=== PATIENT | female | born 1995 | race Caucasian/White ===

== ENCOUNTER 2017-12-08 13:55 | Emergency (ER) | payer OTHER ==
[2017-12-08] MEDS ORDERED: SODIUM CHLORIDE 0.9% 1,000 ML IV ONE (15:06)
--- NOTE | 2017-12-08 15:10 | ED ---
General Adult HPI - General Chief complaint: Vaginal Bleeding Stated complaint: 8 wks preg/bleeding & lightheaded Time Seen by Provider: 12/08/17 15:01 Source: patient, RN notes reviewed Mode of arrival: wheelchair Limitations: no limitations - History of Present Illness Initial comments: Patient is a pleasant 22-year-old female presenting to the emergency department with vaginal bleeding and cramping. Onset was a couple of hours ago. Patient estimates she may be 6-8 weeks . Last menstrual cycle was beginning of September but only lasted 2 days. Patient states she has been having irregular periods recently. Patient does have a history of cervical and ovarian cancer status post chemotherapy. Patient did not think it is possible . Patient is having bleeding that started as spotting however now is somewhat more than that but still later than a regular menstrual cycle. Patient also has cramping that is more severe than a regular menstrual cycle. Discomfort is presenting to the lower abdomen and back. Patient just found out she was a few days ago. Patient is 1 para 0. - Related Data Home Medications Medication Instructions Recorded Confirmed Albuterol Sulfate [Proair Hfa] 1 - 2 puff INHALATION RT-Q6H PRN 12/08/17 Allergies Allergy/AdvReac Type Severity Reaction Status Date / Time No Known Allergies Allergy Verified 12/08/17 15:49 Review of Systems ROS Statement: Those systems with pertinent positive or pertinent negative responses have been documented in the HPI. ROS Other: All systems not noted in ROS Statement are negative. Constitutional: Denies: fever Eyes: Denies: eye pain ENT: Denies: ear pain Respiratory: Denies: cough Cardiovascular: Denies: chest pain Endocrine: Denies: fatigue Gastrointestinal: Reports: abdominal pain Genitourinary: Reports: abnormal menses. Denies: dysuria Musculoskeletal: Reports: back pain Skin: Denies: rash Neurological: Denies: weakness Past Medical History Past Medical History: Asthma History of Any Multi-Drug Resistant Organisms: None Reported Past Surgical History: Appendectomy, Orthopedic Surgery Past Psychological History: ADD/ADHD, Anxiety, Depression, Schizophrenia Smoking Status: Current every day smoker Past Alcohol Use History: Daily Past Drug Use History: Marijuana General Exam Limitations: no limitations General appearance: alert Head exam: Present: atraumatic Eye exam: Present: normal appearance, PERRL ENT exam: Present: normal oropharynx Neck exam: Present: normal inspection Respiratory exam: Present: normal lung sounds bilaterally Cardiovascular Exam: Present: regular rate, normal rhythm GI/Abdominal exam: Present: soft, tenderness (Mild suprapubic tenderness). Absent: distended External exam: Present: normal external exam (RN Hui present) Speculum exam: Present: vaginal bleeding (Mild) By manual exam: Present: other (Mild diffuse tenderness on exam, somewhat more left adnexal) Extremities exam: Present: normal inspection Back exam: Present: tenderness (Mild discomfort lower back) Neurological exam: Present: alert Psychiatric exam: Present: normal affect, normal mood Skin exam: Present: normal color Course Vital Signs 12/08/17 12/08/17 14:23 16:31 Temperature 97.9 F Pulse Rate 63 63 Respiratory 16 18 Rate Blood Pressure 125/90 124/75 O2 Sat by Pulse 99 99 Oximetry Medical Decision Making - Medical Decision Making Patient reevaluated and resting comfortably in bed. Patient does request something for discomfort. Patient is updated on negative test as well as ultrasound results. Patient is nevertheless advised close follow-up with [facility] TECHNICIAN in the next couple of days. - Lab Data Result diagrams: 12/08/17 15:37 12/08/17 15:37 Lab Results 12/08/17 12/08/17 12/08/17 Range/Units 15:37 15:37 15:37 WBC 7.8 (3.8-10.6) k/uL RBC 4.50 (3.80-5.40) m/uL Hgb 14.6 (11.4-16.0) gm/dL Hct 42.8 (34.0-46.0) % MCV 95.1 (80.0-100.0) fL MCH 32.4 (25.0-35.0) pg MCHC 34.1 (31.0-37.0) g/dL RDW 12.4 (11.5-15.5) % Plt Count 249 (150-450) k/uL Neutrophils % 69 % Lymphocytes % 23 % Monocytes % 4 % Eosinophils % 3 % Basophils % 1 % Neutrophils # 5.3 (1.3-7.7) k/uL Lymphocytes # 1.8 (1.0-4.8) k/uL Monocytes # 0.3 (0-1.0) k/uL Eosinophils # 0.2 (0-0.7) k/uL Basophils # 0.0 (0-0.2) k/uL PT (9.0-12.0) sec INR (<1.2) APTT (22.0-30.0) sec Sodium 141 (137-145) mmol/L Potassium 3.9 (3.5-5.1) mmol/L Chloride 103 (98-107) mmol/L Carbon Dioxide 25 (22-30) mmol/L Anion Gap 13 mmol/L BUN 14 (7-17) mg/dL Creatinine 0.60 (0.52-1.04) mg/dL Est GFR (CKD-EPI)AfAm >90 (>60 ml/min/1.73 sqM) Est GFR (CKD-EPI)NonAf >90 (>60 ml/min/1.73 sqM) Glucose 102 H (74-99) mg/dL Calcium 9.8 (8.4-10.2) mg/dL Total Bilirubin 0.3 (0.2-1.3) mg/dL AST 16 (14-36) U/L ALT 29 (9-52) U/L Alkaline Phosphatase 49 (38-126) U/L Total Protein 6.9 (6.3-8.2) g/dL Albumin 4.4 (3.5-5.0) g/dL HCG, Quant <2.4 mIU/mL Trichomonas Ag (Rapid) (Negative) Blood Type A Positive Blood Type Recheck No 12/08/17 12/08/17 Range/Units 15:37 15:37 WBC (3.8-10.6) k/uL RBC (3.80-5.40) m/uL Hgb (11.4-16.0) gm/dL Hct (34.0-46.0) % MCV (80.0-100.0) fL MCH (25.0-35.0) pg MCHC (31.0-37.0) g/dL RDW (11.5-15.5) % Plt Count (150-450) k/uL Neutrophils % % Lymphocytes % % Monocytes % % Eosinophils % % Basophils % % Neutrophils # (1.3-7.7) k/uL Lymphocytes # (1.0-4.8) k/uL Monocytes # (0-1.0) k/uL Eosinophils # (0-0.7) k/uL Basophils # (0-0.2) k/uL PT 10.0 (9.0-12.0) sec INR 1.0 (<1.2) APTT 23.0 (22.0-30.0) sec Sodium (137-145) mmol/L Potassium (3.5-5.1) mmol/L Chloride (98-107) mmol/L Carbon Dioxide (22-30) mmol/L Anion Gap mmol/L BUN (7-17) mg/dL Creatinine (0.52-1.04) mg/dL Est GFR (CKD-EPI)AfAm (>60 ml/min/1.73 sqM) Est GFR (CKD-EPI)NonAf (>60 ml/min/1.73 sqM) Glucose (74-99) mg/dL Calcium (8.4-10.2) mg/dL Total Bilirubin (0.2-1.3) mg/dL AST (14-36) U/L ALT (9-52) U/L Alkaline Phosphatase (38-126) U/L Total Protein (6.3-8.2) g/dL Albumin (3.5-5.0) g/dL HCG, Quant mIU/mL Trichomonas Ag (Rapid) Negative (Negative) Blood Type Blood Type Recheck - Radiology Data Radiology results: report reviewed (Ultrasound shows no evidence of intrauterine .) Disposition Clinical Impression: Vaginal bleeding Disposition: HOME SELF-CARE Condition: Stable Instructions: Miscarriage (ED), Dysfunctional Uterine Bleeding (ED) Additional Instructions: Please follow-up with primary care physician or [facility] TECHN[facility] in the next 48 hours for further evaluation. Return for increased pain, fever, uncontrolled bleeding, worsening or changing symptoms or other concerns. Is patient prescribed a controlled substance at d/c from ED?: No Referrals: None,Stated [Primary Care Provider] - 1-2 days Time of Disposition: 17:18
[2017-12-08 15:57] LABS: Basophils % (A) 1 %; Eosinophils # (A) 0.2 k/uL (0-0.7); Eosinophils % (A) 3 %; HCT 42.8 % (34.0-46.0); HGB 14.6 gm/dL (11.4-16.0); Lymphocytes # (A) 1.8 k/uL (1.0-4.8); Lymphocytes % (A) 23 %; MCH 32.4 pg (25.0-35.0); MCHC 34.1 g/dL (31.0-37.0); MCV 95.1 fL (80.0-100.0); Mean Platelet Volume 6.9; Monocytes # (A) 0.3 k/uL (0-1.0); Monocytes % (A) 4 %; Neutrophils # (A) 5.3 k/uL (1.3-7.7); Neutrophils % (A) 69 %; Platelet Count 249 k/uL (150-450); RDW 12.4 % (11.5-15.5); WBC 7.8 k/uL (3.8-10.6)
[2017-12-08 16:05] LABS: ALT 29 U/L (9-52); AST 16 U/L (14-36); Albumin 4.4 g/dL (3.5-5.0); Alkaline Phosphatase 49 U/L (38-126); Anion Gap 13 mmol/L; Blood Urea Nitrogen 14 mg/dL (7-17); Calcium 9.8 mg/dL (8.4-10.2); Carbon Dioxide 25 mmol/L (22-30); Chloride 103 mmol/L (98-107); Glucose 102 mg/dL (74-99); Potassium 3.9 mmol/L (3.5-5.1); Sodium 141 mmol/L (137-145); Total Bilirubin 0.3 mg/dL (0.2-1.3); Total Protein 6.9 g/dL (6.3-8.2)
[2017-12-08 16:22] LABS: HCG,Quantitative Serum <2.4 mIU/mL
[2017-12-08 16:35] VITALS: RESP 18
--- NOTE | 2017-12-08 17:01 | US ---
EXAMINATION TYPE: Transabdominal DATE OF EXAM: 10/27/17 COMPARISON: NONE CLINICAL HISTORY: 22-year-old female pain. 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 Dates by Current Scan for: No IUP seen at this time MATERNAL ANATOMY Uterus: 7.4 x 3.9 x 3.0cm, nabothian cyst seen within cervix Right Ovary: 3.6 x 2.4 x 2.6cm Left Ovary: 3.5 x 3.1 x 2.9cm, with follicular change, 1.2cm dominate follicle versus involuting cyst Post CDS / Adnexa: wnl Presence of free fluid: no Presence of corpus luteal cyst: not seen Presence of subchorionic bleed: no GESTATION / SURVEY Irrigation District Manager notes: No IUP seen at this time Date of LMP: unknown, irregular cycles Beta HcG (if available): pending Irrigation District Manager notes:*appearance of bilateral ovarian cyst transabdominal were not real when transvagina l approach was used. IMPRESSION: No intrauterine seen at this time. Correlate with beta hCG values. A beta-hCG value of 2000 is generally regarded as the threshold for visualization of a gestational sac by transvaginal scanni ng. In the setting of a positive test, differential considerations include normal early pregnan cy, failed , and nonvisualized ectopic . Appropriate follow-up recommended.
[2017-12-08] MEDS ORDERED: KETOROLAC 30 MG/ML 1 ML VIAL IVP STA (17:17)
[2017-12-08 17:42] VITALS: BP 126/71; PULSE 65; TEMP 97.8
[2017-12-10 12:54] LABS: C. trachomatis,PCR Negative (Neg,Equiv); Chlamydia trachomatis Source Vagina; N. gonorrhoeae,PCR Negative (Neg,Equiv); Neisseria Source Vagina
== END 2017-12-08 17:42 | disposition home or self-care (01) ==
LOC: EC 13:55
DX: N93.9 Abnormal uterine and vaginal bleeding, unspecified (principal); F17.200 Nicotine dependence, unspecified, uncomplicated; Z32.02 Encounter for pregnancy test, result negative
CPT/HCPCS: 99284; 96374; 96361 ×2; 36415; 86900; 86901; 80053; 85025; 85610; 85730; 84702; 87808; 87491; 87591; 87070; 76801; 76817; J1885; 87205